=== PATIENT | female | born 2000 | race Caucasian/White ===

== ENCOUNTER 2021-12-25 18:10 | Emergency (ER) | payer BC, SELFPAY ==
[2021-12-25 18:11] VITALS: BP 121/82; PULSE 90; RESP 18; TEMP 35.9; O2SAT 99; BMI 20.9
--- NOTE | 2021-12-25 18:26 | CT_ITS ---
INDICATION: right flank pain EXAMINATION: CT Abdomen And Pelvis W/O Contrast Injection TECHNIQUE: Helically acquired images were obtained of the abdomen and pelvis without the use of IV contrast. A radiation dose optimization technique was used for this scan. Oral contrast: None. COMPARISON: None FINDINGS: Evaluation of the solid organs and vascular structures is limited without intravenous contrast. Visualized lung bases: Unremarkable Liver: Unremarkable Gallbladder: Unremarkable Spleen: Unremarkable Pancreas: Unremarkable Adrenal Glands: Unremarkable Kidneys: Unremarkable Vasculature: Unremarkable GI Tract: The appendix is not visualized. Lymphadenopathy: None Peritoneum: No ascites. Bladder: Unremarkable Reproductive organs: Unremarkable Bones/Soft tissues: No suspicious osseous or soft tissue lesions CT/Abdomen/Pelvis without Cont IMPRESSION: No acute abnormalities in the abdomen or pelvis. Electronically Signed: Jesse Contreras MD at 19:42 EST ,
--- NOTE | 2021-12-25 18:28 | EX.ED.DYSGE1 ---
HPI History of Present Illness Chief Complaint: Flank Pain Informant: patient Onset/Context/Timing Onset: Yesterday Context: Gradual Onset Current Severity: Moderate Maximum Severity: Moderate Narrative Narrative: Patient presents secondary to right flank pain. She points to the lateral portion of the right lower abdomen and describing the primary area of pain. She states pain is now wrapping around into her lower back as well. Pain started yesterday but significant worsened today. She denies fever or chills. No nausea or vomiting. No diarrhea. No urinary symptoms. Last menstrual cycle was approximately 1 week ago. No history of ovarian cyst. [facility] Medical History Anxiety Home Medications multivitamin with folic acid [Thera] 1 tab PO DAILY 05/13/15 [History Last Taken Unknown] naproxen [Naprosyn] 500 mg PO BID PRN #20 tab 12/25/21 [Rx Last Taken Unknown] sulfamethoxazole-trimethoprim [Bactrim DS] 1 tab PO BID #6 tab 12/25/21 [Rx Last Taken Unknown] Allergy/AdvReac Type Severity Reaction Status Date / Time No Known Allergies Allergy Verified 12/25/21 18:11 Family History no significant family his Surgical History no surgical history Social History Smoking Status: Never smoker ROS ROS ED Constitutional Constitutional ED: Denies chills or fever(s) Eyes Eyes: Denies change in vision ENT ENT ED: Denies sore throat Cardiovascular Cardiovascular: Denies chest pain Respiratory/Chest Respiratory/Chest: Denies cough or dyspnea Gastrointestinal Gastrointestinal: Reports abdominal pain; Denies diarrhea, nausea or vomiting Genitourinary Genitourinary ED: Denies dysuria Musculoskeletal Musculoskeletal: Denies back pain or neck pain Integumentary Denies rash Neurologic Neurologic: Denies headache(s) or weakness Allergic/Immunologic Allergic/Immunologic ED: Denies urticaria EXAM Physical Exam Const Vital Signs: 12/25/21 18:11 Temperature 96.7 F L Temperature Source Temporal Pulse Rate 90 Respiratory Rate 18 Blood Pressure 121/82 H Blood Pressure Mean 95 Pulse Ox 99 Oxygen Delivery Method Room Air Positive well nourished HEENT Reports moist mucous membranes Eyes PERRL and EOMs intact bilaterally Neck supple Chest Wall inspection of chest normal and palpation of chest normal Resp normal respiratory effort and clear to auscultation bilaterally GI Auscultation: hypoactive bowel sounds Palpation: soft and tender RLQ; Negative for guarding or rebound tenderness present Extremity normal to inspection Neuro oriented x3 Sensorium / Orientation: alert Psych mental status grossly normal Skin no rashes or lesions noted MDM MDM MDM Narrative Medical decision making narrative: Patient given IV fluids along with a small dose of morphine and Toradol and Zofran. Lab work and urinalysis obtained. CT flank ordered. Lab Data Attestation: I reviewed the patient's lab results. Labs: Laboratory Results - last 24 hr 12/25/21 12/25/21 12/25/21 18:15 18:35 18:35 WBC 8.3 RBC 4.84 Hgb 14.3 Hct 42.6 MCV 88.0 MCH 29.5 MCHC 33.6 RDW Std Deviation 41.8 RDW Coeff of Mandeep 12.9 Plt Count 237 MPV 11.1 Immature Gran % (Auto) 0.100 Neut % (Auto) 68.7 Lymph % (Auto) 23.3 [place] % (Auto) 6.9 Eos % (Auto) 0.8 Baso % (Auto) 0.2 Absolute Neuts (auto) 5.7 Absolute Lymphs (auto) 1.93 Nucleated RBC % 0 Sodium 138 Potassium 4.0 Chloride 106 Carbon Dioxide 27.0 Anion Gap 5 BUN 12 Creatinine 0.91 Estim Creat Clear Calc 81.58 Est GFR (MDRD) Af Amer 100 Est GFR (MDRD) Non-Af 83 BUN/Creatinine Ratio 13.1 Glucose 80 Calcium 8.9 Total Bilirubin 0.30 Direct Bilirubin 0.09 AST 19 ALT 28 Alkaline Phosphatase 53 Total Protein 7.8 Albumin 4.0 Globulin 3.8 Serum , Qual Urine Color Yellow Urine Clarity Sl Cldy Urine pH 6.0 Ur Specific [place] 1.030 Urine Protein 30 H Urine Glucose (UA) Normal Urine Ketones 5 H Urine Occult Blood 150 H Urine Nitrite Negative Urine Bilirubin 1 H Urine Urobilinogen 1 H Ur Leukocyte Esterase 500 H Urine RBC 25-50 SEEN Urine WBC 25-50 SEEN Ur Squamous Epith Cells 10-25 SEEN Amorphous Sediment 1+ URATE Urine Bacteria RARE Urine Mucus 1+ 12/25/21 12/25/21 18:35 20:00 WBC RBC Hgb Hct MCV MCH MCHC RDW Std Deviation RDW Coeff of Mandeep Plt Count MPV Immature Gran % (Auto) Neut % (Auto) Lymph % (Auto) [place] % (Auto) Eos % (Auto) Baso % (Auto) Absolute Neuts (auto) Absolute Lymphs (auto) Nucleated RBC % Sodium Potassium Chloride Carbon Dioxide Anion Gap BUN Creatinine Estim Creat Clear Calc Est GFR (MDRD) Af Amer Est GFR (MDRD) Non-Af BUN/Creatinine Ratio Glucose Calcium Total Bilirubin Direct Bilirubin AST ALT Alkaline Phosphatase Total Protein Albumin Globulin Serum , Qual NEGATIVE Urine Color Yellow Urine Clarity Sl. Cloudy Urine pH 5.0 Ur Specific [place] 1.025 Urine Protein 30 H Urine Glucose (UA) Normal Urine Ketones 50 H Urine Occult Blood 50 H Urine Nitrite Negative Urine Bilirubin 1 H Urine Urobilinogen 1 H Ur Leukocyte Esterase 500 H Urine RBC 0-5 SEEN Urine WBC 25-50 SEEN Ur Squamous Epith Cells 0-5 SEEN Amorphous Sediment 1+ URATE Urine Bacteria RARE Urine Mucus 0 SEEN Radiography Diagnostic Testing: Clinical Impression(s) from Imaging Studies Abdomen/Pelvis CT 12/25/21 18:26 IMPRESSION: No acute abnormalities in the abdomen or pelvis. Electronically Signed: Jesse Contreras MD at 19:42 EST , Treatment and Re-Evaluation Comments:: Lab work unremarkable. Initial urinalysis contaminated with 10-25 white cells, however did have blood as well as white cells. Repeat urine was obtained. With a better sample we still at 25-50 white cells and rare bacteria. CT flank reveals no acute abnormalities. I discussed with the patient that she may have recently passed a kidney stone. At this time I do not see evidence of a kidney stone. I will treat her with 3 days of antibiotic to clear urine. She will be given naproxen for pain. Return instructions given. Discharge Plan Triage Chief Complaint: Flank Pain ED Provider: Alicia Motta Dx/Rx/DC Orders Clinical Impression: UTI (urinary tract infection), Abdominal pain Instructions: ED CYSTITIS Female Adult Prescriptions: New naproxen [Naprosyn] 500 mg tablet 500 mg PO BID PRN (Reason: pain) Qty: 20 RF: 0 sulfamethoxazole-trimethoprim [Bactrim DS] 800-160 mg tablet 1 tab PO BID Qty: 6 RF: 0 No Action multivitamin with folic acid [Thera] 1 TABLET tablet 1 tab PO DAILY RF: 0 Primary Care Provider: Denys Stewart Referrals: Denys Stewart MD [Primary Care Provider] - 1 Week if not improving Disposition Disposition: Home, Self Care
[2021-12-25] MEDS: 0.9% Normal Saline 1,000 ML 150 ML IV (18:35)
[2021-12-25] MEDS: Morphine 2 MG/ML Syringe IV (18:38)
[2021-12-25] MEDS: Ondansetron 4 MG/2 ML Vial IV (18:38)
[2021-12-25] MEDS: Ketorolac 15 MG/ML Vial IV (18:38)
[2021-12-25 18:44] LABS: Absolute Lymphocyte Count 1.93 X10^3/uL (0.83-4.51); Absolute Neutrophil Count 5.7 X10^3/uL (2.0-7.7); Basophil# 0.02 X10^3/uL; Basophil% 0.2 % (0-1); Eosinophil# 0.07 X10^3/uL; Eosinophils% 0.8 % (0-5); Hematocrit 42.6 % (37-47); Hemoglobin 14.3 g/dL (12.0-15.0); Lymphocyte # 1.93 X10^3/ul (0.83-4.51); Lymphocyte % 23.3 % (19-41); Mean Corp Hgb Conc 33.6 g/dL (32-36); Mean Corpuscular Hgb 29.5 pg (27.0-32.0); Mean Platelet Vol. 11.1 fl (6.2-12.0); Monocyte# 0.57 X10^3/uL; Monocyte% 6.9 % (0-10); NRBC Flagged by Analyzer 0 % (0-5); Neutrophil # 5.68 X10^3/uL (2.7-7.7); Neutrophil % 68.7 % (47-70); Platelet Count 237 K/mm3 (150-450); RBC Distribution Width CV 12.9 % (11.6-14.6); RBC Distribution Width SD 41.8 fl (35.1-43.9); Red Blood Count 4.84 M/mm3 (4.2-5.4); White Blood Count 8.3 K/mm3 (4.4-11.0)
[2021-12-25 18:59] LABS: Color, Urine Yellow (Yellow); Glucose, Dipstick Normal (Normal); Ketone-Dipstick 5 mg/dl (Negative); Leukocyte Esterase-Dipstick 500 /ul (Negative); Nitrite-Dipstick Negative (Negative); Occult Blood-Urine 150 /ul (Negative); Protein-Dipstick 30 mg/dl (Negative); Urine Urobilinogen 1 mg/dl (Normal)
[2021-12-25 19:02] LABS: Internal QC Validated? YES +Cl - CLEAR BKGD; Pregnancy, Serum, hCG Quali. NEGATIVE Negative
[2021-12-25 19:06] LABS: AST(SGOT) 19 U/L (15-37); Alanine Aminotransfer ALT/SGPT 28 U/L (13-56); Alkaline Phosphatase 53 U/L (45-117); Anion Gap 5 (5-15); BUN 12 mg/dL (7-18); BUN/Creat Ratio 13.1 RATIO (10-20); Bilirubin, Direct 0.09 mg/dL (0.00-0.30); Calcium,Total 8.9 mg/dL (8.5-10.1); Chloride 106 mmol/L (98-107); Creatinine, Serum 0.91 mg/dL (0.55-1.02); EST Glomerular Filtration Rate 83 mL/min (>60); Est Glom Filt Rate - Afr Amer 100 mL/min (>60); Estimated Creatinine Clearance 81.58 ml/min; Globulin 3.8 g/dL (2.2-4.2); Glucose 80 mg/dL (74-106); Protein, Total 7.8 g/dL (6.4-8.2); Sodium Level 138 mmol/L (136-145)
[2021-12-25 19:20] LABS: Urine Bilirubin Dipstick 1 mg/dL (Negative)
[2021-12-25 19:22] LABS: Amorphous Sediment 1+ URATE; Bacteria RARE /hpf (None Seen); Mucous, Urine 1+ /hpf (<or=2+); Red Blood Cells-Urine 25-50 SEEN /hpf (0-5); Squamous Epithelial Cells - UA 10-25 SEEN /hpf (5-10); White Blood Cells 25-50 SEEN /hpf (0-5)
[2021-12-25 19:23] LABS: Urine Clarity Sl Cldy (Clear)
[2021-12-25 20:09] LABS: Mucous, Urine 0 SEEN /hpf (<or=2+)
[2021-12-25 20:16] LABS: Color, Urine Yellow (Yellow); Glucose, Dipstick Normal (Normal); Ketone-Dipstick 50 mg/dl (Negative); Leukocyte Esterase-Dipstick 500 /ul (Negative); Nitrite-Dipstick Negative (Negative); Occult Blood-Urine 50 /ul (Negative); Protein-Dipstick 30 mg/dl (Negative); Specific Gravity, Urine 1.025 (1.002-1.030); Urine Clarity Sl. Cloudy (Clear); Urine Urobilinogen 1 mg/dl (Normal)
[2021-12-25 20:33] LABS: Urine Bilirubin Dipstick 1 mg/dL (Negative)
[2021-12-25 20:34] LABS: Amorphous Sediment 1+ URATE; Bacteria RARE /hpf (None Seen); Red Blood Cells-Urine 0-5 SEEN /hpf (0-5); Squamous Epithelial Cells - UA 0-5 SEEN /hpf (5-10); White Blood Cells 25-50 SEEN /hpf (0-5)
[2021-12-25] MEDS: Smz/Tmp Ds Tablet 1 TABLET PO (20:49)
== END 2021-12-25 20:52 | disposition home or self-care (01) ==
PROVIDERS: Emergency Provider Emergency Medicine; PCP Pediatrics; Visit Provider Emergency Medicine
DX: N39.0 Urinary tract infection, site not specified (principal); F41.9 Anxiety disorder, unspecified; Z79.899 Other long term (current) drug therapy
CPT/HCPCS: 74176; 80048; 80076; 81001; 84703; 85025; 96361; 96374; 96375; 99284; J7030; J2405

== ENCOUNTER 2021-12-26 09:34 | Emergency (ER) | payer BC, SELFPAY ==
[2021-12-26 09:34] VITALS: BP 106/74; PULSE 114; RESP 18; TEMP 36.4; O2SAT 99; BMI 20.9
[2021-12-26 09:52] VITALS: BP 106/74; PULSE 114; RESP 18; TEMP 36.4; O2SAT 99
--- NOTE | 2021-12-26 10:13 | CT_ITS ---
STUDY: CT ABDOMEN AND PELVIS WITH CONTRAST REASON FOR EXAM: Female, 21 years old. Right flank pain. RADIATION DOSAGE (If Supplied By Facility): CTDIvol = ( 6.06 ) mGy, DLP = ( 235.18 ) mGycm TECHNIQUE: Transaxial images were obtained from the dome of the diaphragm to the symphysis pubis with oral contrast. Oral and amp; IV Gastrografin and amp; 100mL Isovue-300 was administered. Sagittal and coronal images were reconstructed. Individualized dose optimization techniques were used for this CT. COMPARISON: Comparison is made with prior examination dated 12/25/2021. FINDINGS: The visualized lung bases are unremarkable. The visualized portions of the heart are within normal limits. Normal liver. Normal gallbladder and extrahepatic biliary system. Normal spleen. Normal pancreas. Normal bilateral adrenal glands. Normal right kidney. Normal left kidney. Normal visualized stomach. Normal small intestine. Normal colon. The appendix is visualized and appears normal. Normal abdominal aorta. Normal inferior vena cava. Normal retroperitoneum. Normal urinary bladder. Small follicles are seen in both ovaries. Normal abdominal wall. Normal osseous structures. CT/Abdomen/Pelvis WITH Contrast IMPRESSION: Normal enhanced CT of the abdomen and pelvis. Electronically Signed: Yordy Basurto MD at 12:11 [facility] ,
--- NOTE | 2021-12-26 10:14 | EDS_ITS ---
HPI HPI - GI History of Present Illness Chief Complaint: Flank Pain Informant: patient Abdominal Pain/Flank Pain Onset: Days (3) Context: Sudden Onset Timing: Continuous Quality: Sharp and Stabbing Location: RUQ, RLQ and Right Flank Worsened by: Nothing Relieved by: Nothing Nausea/Vomiting/Emesis GI Symptom: Positive for Nausea; Negative for Vomiting Diarrhea/Melena/Hematochezia GI Symptom: Negative for Diarrhea, Melena and Hematochezia Associated Symptoms Associated Symptoms: Negative for Dysuria and Hematuria Narrative Narrative: Patient presents with right-sided abdominal pain that has been get ting worse over the past 3 days. Patient was seen here yesterday and was diagnosed with a urinary tract infection. Patient was started on Bactrim. Patient states her pain is worse today. Patient states she followed up with her primary care physician today who referred her to the emergency department. Patient admits to nausea but denies any vomiting. Patient denies any diarrhea, melena, or hematochezia. Patient denies any dysuria or hematuria. PFSH PFSH Medical History ACL tear Anxiety Home Medications multivitamin with folic acid [Thera] 1 tab PO DAILY 05/13/15 [History Last Taken Unknown] naproxen [Naprosyn] 500 mg PO BID PRN #20 tab 12/25/21 [Rx Last Taken Unknown] sulfamethoxazole-trimethoprim [Bactrim DS] 1 tab PO BID #6 tab 12/25/21 [Rx Last Taken Unknown] hydrocodone-acetaminophen 1 tab PO Q6H PRN PRN 3 Days #10 tablet 12/26/21 [Rx Last Taken Unknown] Allergy/AdvReac Type Severity Reaction Status Date / Time No Known Allergies Allergy Verified 12/25/21 18:11 Social History Smoking Status: Never smoker ROS ROS ED Constitutional Constitutional ED: Denies chills or fever(s) Eyes Eyes: Denies blurry vision or change in vision ENT ENT ED: Denies rhinorrhea or sore throat Cardiovascular Cardiovascular: Denies chest pain or palpitations Respiratory/Chest Respiratory/Chest: Denies cough or dyspnea Gastrointestinal Gastrointestinal: Reports abdominal pain and nausea; Denies vomiting Genitourinary Genitourinary ED: Denies dysuria or hematuria Musculoskeletal Musculoskeletal: Reports back pain; Denies neck pain Integumentary Denies abscess or rash Neurologic Neurologic: Denies headache(s) or weakness Allergic/Immunologic Allergic/Immunologic ED: Denies mouth swelling or urticaria EXAM Physical Exam Const Vital Signs: 12/26/21 09:34 12/26/21 09:52 Temperature 97.5 F L 97.5 F L Temperature Source Temporal Temporal Pulse Rate 114 H 114 H Respiratory Rate 18 18 Respiratory Effort Normal Non-Labored Respiratory Pattern Normal Blood Pressure 106/74 106/74 Blood Pressure Mean 84 84 Pulse Ox 99 99 Oxygen Delivery Method Room Air Room Air Positive well nourished and well developed General Appearance ED: well developed HEENT Reports moist mucous membranes Neck supple and no JVD Resp normal respiratory effort and clear to auscultation bilaterally Cardio regular rate, regular rhythm and no murmurs GI normal to inspection, nondistended, normoactive bowel sounds Auscultation: normoactive bowel sounds Palpation: soft and tender RLQ and RUQ; Negative for guarding or rebound tenderness present Extremity normal to inspection General Extremety ED: Negative for edema or tenderness General Extremity: Negative for edema Neuro oriented x3, CN's II-XII intact bilaterally and no sensory deficits noted Sensorium / Orientation: alert Motor Exam: strength 5/5 throughout Psych mental status grossly normal Skin no rashes or lesions noted MDM MDM MDM Narrative Medical decision making narrative: Patient was given IV fluids, morphine, and Zofran. CBC was within normal limits. Comprehensive metabolic profile was within normal limits. Lipase was normal. Serum hCG was negative. Urinalysis shows a leukocyte esterases of 100. There were 0-5 white blood cells. This was improved from yesterday. CT scan of the abdomen pelvis with oral and IV contrast was obtained. There is no evidence of appendicitis. There is no acute intra-abdominal abnormality. This was interpreted by the radiologist and reviewed by myself. Patient was given a repeat dose of morphine and Zofran here. Patient was resting comfortably on reevaluation. Patient was given a prescription for a short course of [place]. Patient was instructed to finish her Bactrim as prescribed. Patient was instructed to follow-up with her primary care physician in 3 to 5 days. Patient understood and was agreeable with the plan. All questions were answered. Lab Data Attestation: I reviewed the patient's lab results. Labs: Laboratory Results - last 24 hr 12/26/21 12/26/21 12/26/21 10:15 10:15 10:15 WBC 9.9 RBC 4.57 Hgb 13.4 Hct 40.4 MCV 88.4 MCH 29.3 MCHC 33.2 RDW Std Deviation 42.1 RDW Coeff of Mandeep 12.9 Plt Count 224 MPV 10.9 Immature Gran % (Auto) 0.300 Neut % (Auto) 82.1 H Lymph % (Auto) 12.0 L [place] % (Auto) 5.1 Eos % (Auto) 0.4 Baso % (Auto) 0.1 Absolute Neuts (auto) 8.1 H Absolute Lymphs (auto) 1.19 Nucleated RBC % 0 Sodium 138 Potassium 3.9 Chloride 107 Carbon Dioxide 26.0 Anion Gap 5 BUN 17 Creatinine 1.06 H Estim Creat Clear Calc 70.03 Est GFR (MDRD) Af Amer 84 Est GFR (MDRD) Non-Af 70 BUN/Creatinine Ratio 16.0 Glucose 65 L Calcium 9.2 Total Bilirubin 0.40 AST 13 L ALT 25 Alkaline Phosphatase 52 Total Protein 7.8 Albumin 3.8 Globulin 4.0 Albumin/Globulin Ratio 1.0 Lipase 161 Serum , Qual NEGATIVE Urine Color Urine Clarity Urine pH Ur Specific [place] Urine Protein Urine Glucose (UA) Urine Ketones Urine Occult Blood Urine Nitrite Urine Bilirubin Urine Urobilinogen Ur Leukocyte Esterase Urine RBC Urine WBC Ur Squamous Epith Cells Urine Bacteria Urine Mucus 12/26/21 12:00 WBC RBC Hgb Hct MCV MCH MCHC RDW Std Deviation RDW Coeff of Mandeep Plt Count MPV Immature Gran % (Auto) Neut % (Auto) Lymph % (Auto) [place] % (Auto) Eos % (Auto) Baso % (Auto) Absolute Neuts (auto) Absolute Lymphs (auto) Nucleated RBC % Sodium Potassium Chloride Carbon Dioxide Anion Gap BUN Creatinine Estim Creat Clear Calc Est GFR (MDRD) Af Amer Est GFR (MDRD) Non-Af BUN/Creatinine Ratio Glucose Calcium Total Bilirubin AST ALT Alkaline Phosphatase Total Protein Albumin Globulin Albumin/Globulin Ratio Lipase Serum , Qual Urine Color Yellow Urine Clarity Clear Urine pH 6.5 Ur Specific [place] 1.030 Urine Protein Negative Urine Glucose (UA) Normal Urine Ketones 5 H Urine Occult Blood Negative Urine Nitrite Negative Urine Bilirubin Negative Urine Urobilinogen Normal Ur Leukocyte Esterase 100 H Urine RBC 0 SEEN Urine WBC 0-5 SEEN Ur Squamous Epith Cells 0-5 SEEN Urine Bacteria 0 SEEN Urine Mucus 0 SEEN Radiography Diagnostic Testing: Clinical Impression(s) from Imaging Studies Abdomen/Pelvis CT 12/26/21 10:13 IMPRESSION: Normal enhanced CT of the abdomen and pelvis. Electronically Signed: Yordy Basurto MD at 12:11 EST , Discharge Plan Triage Chief Complaint: Flank Pain ED Provider: Carl Mi Dx/Rx/DC Orders Clinical Impression: Abdominal pain Instructions: ED Abdominal Pain Unkn Cause Fem Prescriptions: New hydrocodone-acetaminophen [hydrocodone-acetaminophen] 1 TABLET tablet 1 tab PO Q6H PRN PRN (Reason: Pain) 3 Days Qty: 10 RF: 0 No Action multivitamin with folic acid [Thera] 1 TABLET tablet 1 tab PO DAILY RF: 0 naproxen [Naprosyn] 500 mg tablet 500 mg PO BID PRN (Reason: pain) Qty: 20 RF: 0 sulfamethoxazole-trimethoprim [Bactrim DS] 800-160 mg tablet 1 tab PO BID Qty: 6 RF: 0 Primary Care Provider: Denys Stewart Referrals: Denys Stewart MD [Primary Care Provider] - 3-5 Days Jose Carter MD [STAFF PHYSICIAN] - 3-5 Days Disposition Disposition: Home, Self Care
[2021-12-26 10:28] LABS: Absolute Lymphocyte Count 1.19 X10^3/uL (0.83-4.51); Absolute Neutrophil Count 8.1 X10^3/uL (2.0-7.7); Basophil# 0.01 X10^3/uL; Basophil% 0.1 % (0-1); Eosinophil# 0.04 X10^3/uL; Eosinophils% 0.4 % (0-5); Hematocrit 40.4 % (37-47); Hemoglobin 13.4 g/dL (12.0-15.0); Lymphocyte # 1.19 X10^3/ul (0.83-4.51); Mean Corp Hgb Conc 33.2 g/dL (32-36); Mean Corpuscular Hgb 29.3 pg (27.0-32.0); Mean Corpuscular Volume 88.4 fL (81-99); Mean Platelet Vol. 10.9 fl (6.2-12.0); Monocyte% 5.1 % (0-10); NRBC Flagged by Analyzer 0 % (0-5); Neutrophil # 8.13 X10^3/uL (2.7-7.7); Neutrophil % 82.1 % (47-70); Platelet Count 224 K/mm3 (150-450); RBC Distribution Width CV 12.9 % (11.6-14.6); RBC Distribution Width SD 42.1 fl (35.1-43.9); Red Blood Count 4.57 M/mm3 (4.2-5.4); White Blood Count 9.9 K/mm3 (4.4-11.0)
[2021-12-26 10:47] LABS: AST(SGOT) 13 U/L (15-37); Alanine Aminotransfer ALT/SGPT 25 U/L (13-56); Albumin, Serum 3.8 g/dL (3.2-5.0); Alkaline Phosphatase 52 U/L (45-117); Anion Gap 5 (5-15); BUN 17 mg/dL (7-18); Calcium,Total 9.2 mg/dL (8.5-10.1); Chloride 107 mmol/L (98-107); Creatinine, Serum 1.06 mg/dL (0.55-1.02); EST Glomerular Filtration Rate 70 mL/min (>60); Est Glom Filt Rate - Afr Amer 84 mL/min (>60); Estimated Creatinine Clearance 70.03 ml/min; Glucose 65 mg/dL (74-106); Lipase 161 U/L (73-393); Potassium 3.9 mmol/L (3.5-5.1); Protein, Total 7.8 g/dL (6.4-8.2); Sodium Level 138 mmol/L (136-145)
[2021-12-26] MEDS: Ondansetron 4 MG/2 ML Vial IV ×2 (10:50→12:19)
[2021-12-26] MEDS: 0.9% Normal Saline 1,000 ML 1000 ML IV (10:50)
[2021-12-26] MEDS: Morphine 4 MG/ML Syringe IV ×2 (10:50→12:19)
[2021-12-26 10:52] LABS: Internal QC Validated? YES +Cl - CLEAR BKGD; Pregnancy, Serum, hCG Quali. NEGATIVE Negative
[2021-12-26 12:00] VITALS: BP 101/70; PULSE 106; RESP 16; O2SAT 100
[2021-12-26 12:15] LABS: Bacteria 0 SEEN /hpf (None Seen); Mucous, Urine 0 SEEN /hpf (<or=2+); Red Blood Cells-Urine 0 SEEN /hpf (0-5)
[2021-12-26 12:17] LABS: Color, Urine Yellow (Yellow); Glucose, Dipstick Normal (Normal); Ketone-Dipstick 5 mg/dl (Negative); Leukocyte Esterase-Dipstick 100 /ul (Negative); Nitrite-Dipstick Negative (Negative); Occult Blood-Urine Negative /ul (Negative); Protein-Dipstick Negative (Negative); Urine Bilirubin Dipstick Negative (Negative); Urine Clarity Clear (Clear); Urine Urobilinogen Normal (Normal); Urine pH 6.5 (5.0 - 8.0)
--- NOTE | 2021-12-26 12:24 | ED.RN ---
more pain since amb to br for urine sample and pt vomiting. repeat dose of morphine and zofran given
[2021-12-26 12:32] LABS: Squamous Epithelial Cells - UA 0-5 SEEN /hpf (5-10); White Blood Cells 0-5 SEEN /hpf (0-5)
== END 2021-12-26 13:21 | disposition home or self-care (01) ==
PROVIDERS: Emergency Provider Emergency Medicine; PCP Pediatrics; Visit Provider Emergency Medicine
DX: R10.9 Unspecified abdominal pain (principal); R11.2 Nausea with vomiting, unspecified; N39.0 Urinary tract infection, site not specified; M54.9 Dorsalgia, unspecified; F41.9 Anxiety disorder, unspecified; Z79.1 Long term (current) use of non-steroidal anti-inflammatories (NSAID); Z79.899 Other long term (current) drug therapy
CPT/HCPCS: 74177; 80053; 81001; 83690; 84703; 85025; 96361; 96374; 96375; 96376; 99284; J7030; Q9967; A4216; J2405

== ENCOUNTER 2021-12-28 13:30 | Emergency (ER) | payer BC, SELFPAY ==
[2021-12-28 13:31] VITALS: BP 112/70; PULSE 79; RESP 18; TEMP 36.1; O2SAT 100; BMI 19.5
--- NOTE | 2021-12-28 14:30 | US_ITS ---
STUDY: ABDOMINAL ULTRASOUND REASON FOR EXAM: Female, 21 years old. Right upper quadrant pain with nausea and vomiting. TECHNIQUE: Transabdominal ultrasound was performed with real-time and static newman scale imaging. TECHNICAL QUALITY: Adequate. COMPARISON: Comparison is made with prior CT scan of the abdomen dated 12/26/2021. FINDINGS: Liver: The liver measures 13.5 cm. There is normal echogenicity of the liver. The bile ducts are within normal limits. There is hepatic color flow. The direction of portal flow is hepatopetal. There is no demonstrated mass lesion. Gallbladder: Normal distended gallbladder. The gallbladder wall measures 2 mm. There is a negative sonographic Morales''s sign. There is no pericholecystic fluid. There are no gallstones. Common Bile Duct (C.B.D.): The common bile duct measures 3 mm. Pancreas: Normal size of the head, body and tail of the pancreas. There is normal echogenicity of the pancreas. There is no demonstrated pancreatic mass or cyst. Right Kidney: Normal size of the right kidney. The right kidney measures 10.5 cm x 4.3 cm x 3.3 cm. Normal renal cortex. The right cortex measures 1 cm. There is no demonstrated renal mass or cyst. There is no right hydronephrosis. US/Gallbladder IMPRESSION: Normal abdominal ultrasound examination. Electronically Signed: Yordy Basurto MD at 15:22 EST ,
--- NOTE | 2021-12-28 14:34 | ED.VIS.GI ---
HPI HPI - GI History of Present Illness Chief Complaint: Abd Pain Narrative Narrative: 21-year-old female presenting with abdominal pain. She states has had this since Sunday. She expresses that she is had nausea and vomiting as well as decreased p.o. intake. Her mother states that she lost 8 pounds over the course of the week. She does not have any urinary or vaginal complaints. She denies constipation or diarrhea. She states that the pain is in the right upper quadrant and sometimes wraps around her back. She has no lower abdominal pain. She has not had a fever. She states her only medical problem is anxiety. Patient has had blood work and to CAT scans which were negative. She followed up with Dr. Garcia today recommend she come to the ER for lab work and fluids. PFSH PFSH Medical History ACL tear Anxiety Home Medications multivitamin with folic acid [Thera] 1 tab PO DAILY 05/13/15 [History Last Taken Unknown] fluoxetine 40 mg capsule 40 mg PO DAILY cap 12/28/21 [History Last Taken Unknown] norethindrone acetate 1.5 mg-ethinyl estradiol 30 mcg tablet 1 tab PO DAILY tab 12/28/21 [History Last Taken Unknown] ondansetron 4 mg PO Q8H PRN #14 tab 12/28/21 [Rx Last Taken Unknown] sulfamethoxazole-trimethoprim 1 tab PO BID 12/28/21 [History Last Taken Unknown] Allergy/AdvReac Type Severity Reaction Status Date / Time No Known Allergies Allergy Verified 12/28/21 13:33 Family History Mother Hypertension Father Hypertension Hyperlipidemia Surgical History History of repair of ACL History of wisdom tooth extraction Social History Smoking Status: Never smoker ROS ROS ED Constitutional Constitutional ED: Denies chills or fever(s) ENT ENT ED: Denies rhinorrhea or sore throat Cardiovascular Cardiovascular: Denies chest pain or palpitations Respiratory/Chest Respiratory/Chest: Denies cough, dyspnea or sputum Gastrointestinal Gastrointestinal: Reports abdominal pain, nausea and vomiting; Denies constipation or diarrhea Genitourinary Genitourinary ED: Denies dysuria or hematuria Musculoskeletal Musculoskeletal: Denies arthralgias or myalgias Integumentary Denies rash Neurologic Neurologic: Denies headache(s) or weakness Psychiatric Psychiatric: Denies anxiety or depression EXAM Physical Exam Const Vital Signs: 12/28/21 13:31 12/28/21 16:00 Temperature 97 F L Temperature Source Temporal Pulse Rate 79 88 Respiratory Rate 18 18 Blood Pressure 112/70 Blood Pressure Mean 84 Pulse Ox 100 98 Oxygen Delivery Method Room Air Room Air Positive well nourished General Appearance ED: NAD; Negative for pallor HEENT Reports moist mucous membranes normocephalic and atraumatic Eyes PERRL and EOMs intact bilaterally Neck no lymphadenopathy and supple Resp normal respiratory effort and clear to auscultation bilaterally GI Palpation: soft and tender Morales's sign Back/Spine no CVA tenderness Neuro Sensorium / Orientation: alert, oriented to person, oriented to place and oriented to time Psych mental status grossly normal and thought process normal Skin General Skin Exam: Negative for jaundice or pallor MDM MDM MDM Narrative Medical decision making narrative: Patient presenting with persistent abdominal pain. On my examination this appears to be in the right upper quadrant and she does have a Morales sign. I did obtain blood work and her CBC and CMP are within normal limits. Urinalysis does not appear to be consistent with infection. There is some contamination here. Patiently is currently on antibiotics for UTI. I obtained a right upper quadrant ultrasound which does not show anything acute as interpreted by the radiologist. Dr. Garcia came and evaluated the patient. He recommended that she could pass a p.o. challenge she can be discharged home. He stated that he did consider diagnostic laparotomy and the patient continues have pain but at this point patient feels comfortable being discharged home. I will give Dr. Burger for follow-up as well. Patient given a prescription for Zofran. Return precautions were discussed. Impression: 1. Abdominal pain 2. Nausea/vomiting Lab Data Attestation: I reviewed the patient's lab results. Labs: Laboratory Results - last 24 hr 12/28/21 12/28/21 12/28/21 14:00 14:36 14:36 WBC 7.8 RBC 4.65 Hgb 13.5 Hct 39.9 MCV 85.8 MCH 29.0 MCHC 33.8 RDW Std Deviation 40.6 RDW Coeff of Mandeep 13.1 Plt Count 250 MPV 11.2 Immature Gran % (Auto) 0.100 Neut % (Auto) 82.4 H Lymph % (Auto) 10.8 L [place] % (Auto) 6.3 Eos % (Auto) 0.1 Baso % (Auto) 0.3 Absolute Neuts (auto) 6.5 Absolute Lymphs (auto) 0.85 Nucleated RBC % 0 Sodium 134 L Potassium 4.5 Chloride 102 Carbon Dioxide 24.0 Anion Gap 8 BUN 10 Creatinine 1.05 H Estim Creat Clear Calc 67.32 Est GFR (MDRD) Af Amer 85 Est GFR (MDRD) Non-Af 71 BUN/Creatinine Ratio 9.5 L Glucose 82 Calcium 9.1 Total Bilirubin 0.30 AST 19 ALT 25 Alkaline Phosphatase 52 Total Protein 8.0 Albumin 3.9 Globulin 4.1 Albumin/Globulin Ratio 1.0 Lipase 139 Urine Color Yellow Urine Clarity Sl. Cloudy Urine pH 6.0 Ur Specific [place] 1.025 Urine Protein 30 H Urine Glucose (UA) Normal Urine Ketones 50 H Urine Occult Blood 10 H Urine Nitrite Negative Urine Bilirubin 1 H Urine Urobilinogen 8 H Ur Leukocyte Esterase 500 H Urine RBC 0-5 SEEN Urine WBC 25-50 SEEN Ur Squamous Epith Cells 5-10 SEEN Urine Bacteria 1+ Urine Mucus 0 SEEN Radiography Diagnostic Testing: Clinical Impression(s) from Imaging Studies Gallbladder Ultrasound 12/28/21 14:30 IMPRESSION: Normal abdominal ultrasound examination. Electronically Signed: Yordy Basurto MD at 15:22 EST , Discharge Plan Triage Chief Complaint: Abd Pain ED Provider: Angel Acosta Dx/Rx/DC Orders Clinical Impression: Abdominal pain Instructions: ED Abdominal Pain Unkn Cause Fem Prescriptions: New ondansetron 4 mg tablet,disintegrating 4 mg PO Q8H PRN (Reason: nausea and vomiting) Qty: 14 RF: 0 No Action norethindrone ac-eth estradiol 1.5-30 mg-mcg tablet 1 tab PO DAILY RF: 0 fluoxetine 40 mg capsule 40 mg PO DAILY RF: 0 multivitamin with folic acid [Thera] 1 TABLET tablet 1 tab PO DAILY RF: 0 sulfamethoxazole-trimethoprim 800-160 mg tablet 1 tab PO BID RF: 0 Primary Care Provider: Denys Stewart Referrals: Denys Stewart MD [Primary Care Provider] - Friend,DO Sam [STAFF PHYSICIAN] - As soon as possible Disposition Disposition: Home, Self Care
[2021-12-28] MEDS: Ondansetron 4 MG/2 ML Vial IV ×2 (14:39→18:02)
[2021-12-28] MEDS: 0.9% Normal Saline 1,000 ML 1000 ML IV (14:39)
[2021-12-28 14:44] LABS: Mucous, Urine 0 SEEN /hpf (<or=2+)
[2021-12-28 14:51] LABS: Absolute Lymphocyte Count 0.85 X10^3/uL (0.83-4.51); Absolute Neutrophil Count 6.5 X10^3/uL (2.0-7.7); Basophil# 0.02 X10^3/uL; Basophil% 0.3 % (0-1); Eosinophil# 0.01 X10^3/uL; Eosinophils% 0.1 % (0-5); Hematocrit 39.9 % (37-47); Hemoglobin 13.5 g/dL (12.0-15.0); Lymphocyte # 0.85 X10^3/ul (0.83-4.51); Lymphocyte % 10.8 % (19-41); Mean Corp Hgb Conc 33.8 g/dL (32-36); Mean Corpuscular Volume 85.8 fL (81-99); Mean Platelet Vol. 11.2 fl (6.2-12.0); Monocyte# 0.49 X10^3/uL; Monocyte% 6.3 % (0-10); NRBC Flagged by Analyzer 0 % (0-5); Neutrophil # 6.46 X10^3/uL (2.7-7.7); Neutrophil % 82.4 % (47-70); Platelet Count 250 K/mm3 (150-450); RBC Distribution Width CV 13.1 % (11.6-14.6); RBC Distribution Width SD 40.6 fl (35.1-43.9); Red Blood Count 4.65 M/mm3 (4.2-5.4); White Blood Count 7.8 K/mm3 (4.4-11.0)
[2021-12-28 14:52] LABS: Color, Urine Yellow (Yellow); Glucose, Dipstick Normal (Normal); Ketone-Dipstick 50 mg/dl (Negative); Leukocyte Esterase-Dipstick 500 /ul (Negative); Nitrite-Dipstick Negative (Negative); Occult Blood-Urine 10 /ul (Negative); Protein-Dipstick 30 mg/dl (Negative); Specific Gravity, Urine 1.025 (1.002-1.030); Urine Bilirubin Dipstick 1 mg/dL (Negative); Urine Clarity Sl. Cloudy (Clear); Urine Urobilinogen 8 mg/dl (Normal)
[2021-12-28 14:58] LABS: Bacteria 1+ /hpf (None Seen); Red Blood Cells-Urine 0-5 SEEN /hpf (0-5); Squamous Epithelial Cells - UA 5-10 SEEN /hpf (5-10); White Blood Cells 25-50 SEEN /hpf (0-5)
[2021-12-28 15:02] LABS: AST(SGOT) 19 U/L (15-37); Alanine Aminotransfer ALT/SGPT 25 U/L (13-56); Albumin, Serum 3.9 g/dL (3.2-5.0); Alkaline Phosphatase 52 U/L (45-117); Anion Gap 8 (5-15); BUN 10 mg/dL (7-18); BUN/Creat Ratio 9.5 RATIO (10-20); Calcium,Total 9.1 mg/dL (8.5-10.1); Chloride 102 mmol/L (98-107); Creatinine, Serum 1.05 mg/dL (0.55-1.02); EST Glomerular Filtration Rate 71 mL/min (>60); Est Glom Filt Rate - Afr Amer 85 mL/min (>60); Estimated Creatinine Clearance 67.32 ml/min; Globulin 4.1 g/dL (2.2-4.2); Glucose 82 mg/dL (74-106); Lipase 139 U/L (73-393); Potassium 4.5 mmol/L (3.5-5.1); Sodium Level 134 mmol/L (136-145)
[2021-12-28 16:00] VITALS: PULSE 88; RESP 18; O2SAT 98
--- NOTE | 2021-12-28 17:34 | HP.PCM_ITS ---
HPI - General HPI Narrative LOUIE MALIK, is a 21 F who presented [facility] ER on transfer from my clinic earlier today. There, she was evaluated for right lower quadrant pain of 5 days duration. This pain was associated, however, with intractable nausea and vomiting that had led to signs of clinical dehydration. I referred her to the emergency department for IV fluid resuscitation and repeat labs. Additionally, emergency medicine performed a right upper quadrant ultrasound as they felt that the patient's exam was most consistent with right upper quadrant pain. This exam returned normal results. On reevaluation, the patient describes no pain at rest and only tightness with exam. Laboratories again demonstrate evidence of a left shift but no leukocytosis. [facility] Medical History ACL tear Anxiety Home Medications multivitamin with folic acid [Thera] 1 tab PO DAILY 05/13/15 [History Last Taken Unknown] fluoxetine 40 mg capsule 40 mg PO DAILY cap 12/28/21 [History Last Taken Unknown] norethindrone acetate 1.5 mg-ethinyl estradiol 30 mcg tablet 1 tab PO DAILY tab 12/28/21 [History Last Taken Unknown] ondansetron 4 mg PO Q8H PRN #14 tab 12/28/21 [Rx Last Taken Unknown] sulfamethoxazole-trimethoprim 1 tab PO BID 12/28/21 [History Last Taken Unknown] Allergy/AdvReac Type Severity Reaction Status Date / Time No Known Allergies Allergy Verified 12/28/21 13:33 Family History Mother Hypertension Father Hypertension Hyperlipidemia Surgical History History of repair of ACL History of wisdom tooth extraction Social History Smoking Status: Never smoker Vital Signs Vital Signs Vital Signs: 12/28/21 13:31 12/28/21 16:00 Temperature 97 F L Temperature Source Temporal Pulse Rate 79 88 Respiratory Rate 18 18 Blood Pressure 112/70 Blood Pressure Mean 84 Pulse Ox 100 98 Oxygen Delivery Method Room Air Room Air Weight Weight: 110 lb Body Mass Index (BMI) 19.5 Physical Exam Const alert and oriented x3 Constitutional Narrative: Less lethargic appearing General Appearance: cooperative HEENT HEENT Narrative: Mild flushing Resp normal respiratory effort GI GI Narrative: Soft, nontender to palpation in all 4 quadrants, but patient describes tightness with deep palpation over the right lower quadrant and McBurney's point. Negative obturator and psoas signs. Results Lab / Micro Data Result Diagrams: 12/28/21 14:36 12/28/21 14:36 Labs: Laboratory Results - last 24 hr 12/28/21 14:00: Urine Color Yellow, Urine Clarity Sl. Cloudy, Urine pH 6.0, Ur Specific [place] 1.025, Urine Protein 30 H, Urine Glucose (UA) Normal, Urine Ketones 50 H, Urine Occult Blood 10 H, Urine Nitrite Negative, Urine Bilirubin 1 H, Urine Urobilinogen 8 H, Ur Leukocyte Esterase 500 H, Urine RBC 0-5 SEEN, Urine WBC 25-50 SEEN, Ur Squamous Epith Cells 5-10 SEEN, Urine Bacteria 1+, Urine Mucus 0 SEEN 12/28/21 14:36: WBC 7.8, RBC 4.65, Hgb 13.5, Hct 39.9, MCV 85.8, MCH 29.0, MCHC 33.8, RDW Std Deviation 40.6, RDW Coeff of Mandeep 13.1, Plt Count 250, MPV 11.2, Immature Gran % (Auto) 0.100, Neut % (Auto) 82.4 H, Lymph % (Auto) 10.8 L, [place] % (Auto) 6.3, Eos % (Auto) 0.1, Baso % (Auto) 0.3, Absolute Neuts (auto) 6.5, Absolute Lymphs (auto) 0.85, Nucleated RBC % 0 12/28/21 14:36: Sodium 134 L, Potassium 4.5, Chloride 102, Carbon Dioxide 24.0, Anion Gap 8, BUN 10, Creatinine 1.05 H, Estim Creat Clear Calc 67.32, Est GFR (MDRD) Af Amer 85, Est GFR (MDRD) Non-Af 71, BUN/Creatinine Ratio 9.5 L, Glucose 82, Calcium 9.1, Total Bilirubin 0.30, AST 19, ALT 25, Alkaline Phosphatase 52, Total Protein 8.0, Albumin 3.9, Globulin 4.1, Albumin/Globulin Ratio 1.0, Lipase 139 Radiology Impression Gallbladder Ultrasound 12/28/21 14:30 IMPRESSION: Normal abdominal ultrasound examination. Electronically Signed: Yordy Basurto MD at 15:22 EST , Assessment & Plan Assessment/Plan (1) Abdominal pain: PLAN: Lengthy discussion held with both patient and her mother regarding treatment options. Given the patient's clinical improvements in response to IV fluid resuscitation and absence of pain at rest (or tenderness with exam), I offered consideration of a p.o. challenge and discharge versus overnight observation with serial abdominal exams. Patient and her mother opted for the former and was arranged through emergency medicine. Patient did pass this p.o. challenge and was dismissed from the ER.
[2021-12-28 18:00] VITALS: PULSE 66; RESP 18; O2SAT 99
== END 2021-12-28 18:25 | disposition home or self-care (01) ==
PROVIDERS: Emergency Provider Student in an Organized Health Care Education/Training Program; PCP Pediatrics; Visit Provider Student in an Organized Health Care Education/Training Program
DX: R11.2 Nausea with vomiting, unspecified (principal); R10.31 Right lower quadrant pain; N39.0 Urinary tract infection, site not specified; E86.0 Dehydration; F41.9 Anxiety disorder, unspecified; Z79.899 Other long term (current) drug therapy
CPT/HCPCS: 76705; 80053; 81001; 83690; 85025; 96361; 96374; 96376; 99282; J7030; A4216; J2405

== ENCOUNTER → 2024-12-19 | Outpatient (CLI) | payer BC, SELFPAY ==
[2024-12-19 12:45] LABS: Absolute Neutrophil Count 4.6 X10^3/uL (2.0-7.7); Basophil# 0.04 X10^3/uL; Basophil% 0.6 % (0-1); Eosinophil# 0.08 X10^3/uL; Eosinophils% 1.1 % (0-5); Hematocrit 40.6 % (37-47); Hemoglobin 13.2 g/dL (12.0-15.0); Mean Corp Hgb Conc 32.5 g/dL (32-36); Mean Corpuscular Hgb 29.1 pg (27.0-32.0); Mean Corpuscular Volume 89.6 fL (81-99); Mean Platelet Vol. 11.7 fl (6.2-12.0); Monocyte# 0.62 X10^3/uL; Monocyte% 8.9 % (0-10); NRBC Flagged by Analyzer 0 % (0-5); Neutrophil % 66.1 % (47-70); Platelet Count 284 K/mm3 (150-450); RBC Distribution Width CV 12.2 % (11.6-14.6); RBC Distribution Width SD 39.8 fl (35.1-43.9); Red Blood Count 4.53 M/mm3 (4.2-5.4)
[2024-12-19 12:57] LABS: ALB/GLOB Ratio 1.1 RATIO (0.9-2.4); AST(SGOT) 12 U/L (15-37); Alanine Aminotransfer ALT/SGPT 24 U/L (13-56); Albumin, Serum 3.8 g/dL (3.2-5.0); Alkaline Phosphatase 49 U/L (45-117); Anion Gap 4 (5-15); BUN 18 mg/dL (7-18); BUN/Creat Ratio 20.5 RATIO (10-20); Calcium,Total 9.5 mg/dL (8.5-10.1); Chloride 107 mmol/L (98-107); Creatinine, Serum 0.88 mg/dL (0.55-1.02); EST Glomerular Filtration Rate 84 mL/min (>60); Est Glom Filt Rate - Afr Amer 102 mL/min (>60); Globulin 3.5 g/dL (2.2-4.2); Glucose 80 mg/dL (74-106); Potassium 4.6 mmol/L (3.5-5.1); Protein, Total 7.3 g/dL (6.4-8.2); Sodium Level 140 mmol/L (136-145)
== END | disposition home or self-care (01) ==
LOC: LABSPEC 12:09
PROVIDERS: PCP Pediatrics; Referring Provider Nurse Practitioner Family; Visit Provider Nurse Practitioner Family
DX: R55 Syncope and collapse (principal)
CPT/HCPCS: 80053; 85025